=== PATIENT | female | born 2000 | race Caucasian/White ===

== ENCOUNTER 2021-09-01 19:49 | Emergency (ER) | payer BC ==
[2021-09-01 21:11] LABS: #Eosinphils 0.1 10x3/uL (0.0-0.5); #Monocytes 0.9 10x3/uL (0.0-1.1); #Neutrophils 7.8 10x3/uL (1.5-8.4); %Basophils 0.3 % (0.0-2.0); %Eosinophils 0.8 % (0.0-6.0); %Lymphocytes 24.4 % (18.0-47.0); %Neutrophils 66.2 % (40.0-75.0); Hemoglobin 14.4 g/dL (12.0-15.5); Mean Corpuscular HGB CONC 33.1 g/dL (32.0-36.0); Mean Corpuscular Hemoglobin 28.9 pg (27.0-33.0); Mean Corpuscular Volume 87.2 fl (81.6-98.3); Mean Platelet Volume 9.5 fl (7.4-10.4); Platelet Count 376 10x3/uL (150-450); RBC Distribution Width 13.3 % (11.5-14.5); Red Blood Cell (RBC) Count 4.99 10x6/uL (3.90-5.03); White Blood Cell (WBC) Count 11.8 10x3/uL (3.5-10.5)
[2021-09-01 21:28] LABS: ALT (SGPT) 26 U/L (8-55); AST (SGOT) 20 U/L (5-34); Albumin 4.2 g/dL (3.5-5.0); Alkaline Phosphatase 87 U/L (40-100); Anion Gap 12 mmol/L (10-20); BUN (Urea Nitrogen) 11 mg/dL (7.0-18.7); Bilirubin, Total 0.3 mg/dL (0.2-1.2); Calc. Creatinine Clearance 0 mL/min (70-130); Calcium 9.6 mg/dL (7.8-10.44); Carbon Dioxide 27 mmol/L (22-29); Chloride 106 mmol/L (98-107); Globulin 2.8 g/dL (2.4-3.5); Glucose 90 mg/dL (70-105); Potassium 4.5 mmol/L (3.5-5.1); Sodium 140 mmol/L (136-145)
== END 2021-09-01 21:50 | disposition home or self-care (01) ==
LOC: CSHERS 19:49
DX: O20.0 Threatened abortion (principal); Z3A.01 Less than 8 weeks gestation of pregnancy
CPT/HCPCS: 36415; 76856; 80053; 84702; 85025; 86900; 86901

== ENCOUNTER 2021-09-07 13:02 | Emergency (ER) | payer BC ==
[2021-09-07 13:54] LABS: BHCG - Serum Negative (NEGATIVE); Pregs Control Background? CLEAR/WHITE (CLR/WHITE); Pregs Control Bar Appear? YES (CONTROL BAR)
== END 2021-09-07 15:36 | disposition home or self-care (01) ==
LOC: CSHERS 13:02
DX: O03.9 Complete or unspecified spontaneous abortion without complication (principal); Z79.899 Other long term (current) drug therapy
CPT/HCPCS: 84702; 84703; 99284

== ENCOUNTER 2021-11-26 15:27 | Outpatient (CLI) | payer BC | END 2021-11-26 15:28 | disposition home or self-care (01) | LOC: CSHLAB 15:27 | PROVIDERS: ATTEND Student in an Organized Health Care Education/Training Program | DX: Z01.812 Encounter for preprocedural laboratory examination (principal); Z20.822 Contact with and (suspected) exposure to COVID-19; O02.1 Missed abortion | CPT/HCPCS: 85027; 86850; 86900; 86901; U0003; U0005 ==

== ENCOUNTER 2022-08-19 12:11 | Emergency (ER) | payer OTHER ==
[2022-08-19 13:01] LABS: Bilirubin Neg (Negative); Blood, Urine 50 (Negative); Clarity Cloudy (Clear); Glucose, Urine (Dipstick) Normal (Negative); Ketone, Urine Negative (Negative); Leukocyte 500 (Negative); Nitrite Negative (Negative); Protein, Urine (Dipstick) 100 mg/dl (Neg-Trace)
[2022-08-19 13:10] LABS: Bacteria/HPF 2+ HPF (None Seen); Squamous Epithelial 21-50 HPF (0-3)
[2022-08-19 13:11] LABS: Mucous/LPF 1+ LPF (<2+)
[2022-08-19 13:35] LABS: SARS-CoV-2 NAA Rapid Test Not Detected (NotDetected)
[2022-08-19] MEDS ORDERED: Cephalexin 250 MG CAP ONE (13:58)
[2022-08-19] MEDS ORDERED: Ondansetron ODT 4 MG TAB ONE (13:59)
== END 2022-08-19 14:50 | disposition home or self-care (01) ==
LOC: CSHERS 12:11 → EDSTATUS 12:13 → CSHERS 14:50
DX: O23.13 Infections of bladder in pregnancy, third trimester (principal); N30.01 Acute cystitis with hematuria; Z3A.31 31 weeks gestation of pregnancy; Z20.822 Contact with and (suspected) exposure to COVID-19
CPT/HCPCS: 81003; 81015; 99284; Q0162

== ENCOUNTER 2022-09-20 02:44 | Day surgery (SDC) | payer OTHER ==
[2022-09-20] MEDS ORDERED: hydrALAZINE 20 MG/ML VIAL SLOW IVP PRN (03:02)
[2022-09-20 03:05] VITALS: BMI 31.6
[2022-09-20 04:02] LABS: Bilirubin Neg (Negative); Blood, Urine Negative (Negative); CAUTI Indications for Culture Pregnancy; Clarity Clear (Clear); Glucose, Urine (Dipstick) Normal (Negative); Ketone, Urine Negative (Negative); Leukocyte 25 (Negative); Nitrite Negative (Negative); Protein, Urine (Dipstick) 30 mg/dl (Neg-Trace); Urobilinogen Normal mg/dL (Less than 2)
[2022-09-20 04:04] LABS: Urine Culture Reflex Yes Yes
[2022-09-20 04:14] LABS: Bacteria/HPF Rare-Few HPF (None Seen); RBC/HPF 0-3 HPF (0-3); Squamous Epithelial 0-3 HPF (0-3)
== END 2022-09-20 07:55 | disposition home or self-care (01) ==
LOC: CSHLD/OP 02:44
PROVIDERS: ATTEND Obstetrics & Gynecology
DX: O47.03 False labor before 37 completed weeks of gestation, third trimester (principal); Z3A.36 36 weeks gestation of pregnancy
CPT/HCPCS: 81001; 87086; 99283

== ENCOUNTER 2022-09-22 09:21 | Emergency (ER) | payer OTHER | END 2022-09-22 10:06 | disposition left against medical advice (07) | LOC: CSHERS 09:21 | DX: Z53.21 Procedure and treatment not carried out due to patient leaving prior to being seen by health care provider (principal) ==

== ENCOUNTER 2022-09-25 07:24 | Day surgery (SDC) | payer OTHER ==
[2022-09-25] MEDS ORDERED: hydrALAZINE 20 MG/ML VIAL SLOW IVP PRN (09:02)
== END 2022-09-25 09:18 | disposition home or self-care (01) ==
LOC: CSHLD/OP 07:24
PROVIDERS: ATTEND Obstetrics & Gynecology
DX: O47.1 False labor at or after 37 completed weeks of gestation (principal); O26.873 Cervical shortening, third trimester; Z86.59 Personal history of other mental and behavioral disorders; Z79.899 Other long term (current) drug therapy; Z3A.37 37 weeks gestation of pregnancy

== ENCOUNTER 2022-10-07 16:21 | Inpatient (IN) | payer OTHER ==
[2022-10-07] MEDS ORDERED: Lidocaine 1% (PF) 30 ML VIAL SC PRN (17:19)
[2022-10-07] MEDS ORDERED: Diphenoxylate HCl/Atropine Tablet PO PRN ×2 (17:19)
[2022-10-07] MEDS ORDERED: Promethazine HCl 25 MG/ML VIAL IM PRN (17:19)
[2022-10-07] MEDS ORDERED: hydrALAZINE 20 MG/ML VIAL SLOW IVP PRN (17:19)
[2022-10-07] MEDS ORDERED: Acetaminophen 500 MG TAB PO PRN (17:19)
[2022-10-07] MEDS ORDERED: Ondansetron PF 4 MG/2 ML Vial IVP PRN (17:19)
[2022-10-07] MEDS ORDERED: HYDROcodone/Acetaminophen 5/325 mg Tablet PO PRN ×2 (17:19)
[2022-10-07] MEDS ORDERED: Misoprostol 200 MCG TAB PR PRN (17:19)
[2022-10-07] MEDS ORDERED: Ibuprofen 800 MG TAB PO PRN (17:19)
[2022-10-07] MEDS ORDERED: Butorphanol Tartrate 1 MG/ML VIAL SLOW IVP PRN (17:19)
[2022-10-07] MEDS ORDERED: Carboprost 250 MCG/ML AMP IM PRN (17:19)
[2022-10-07] MEDS ORDERED: NS w/ Oxytocin 30 units 500 ML IV SCH ×2 (17:30)
[2022-10-07 17:55] VITALS: BMI 30.7
[2022-10-07 18:35] LABS: Hemoglobin 11.5 g/dL (12.0-15.5); Mean Corpuscular HGB CONC 34.4 g/dL (32.0-36.0); Mean Corpuscular Hemoglobin 28.7 pg (27.0-33.0); Mean Corpuscular Volume 83.3 fl (81.6-98.3); Mean Platelet Volume 10.1 fl (7.4-10.4); Platelet Count 330 10x3/uL (150-450); Red Blood Cell (RBC) Count 4.01 10x6/uL (3.90-5.03); White Blood Cell (WBC) Count 13.3 10x3/uL (3.5-10.5)
[2022-10-07 18:48] LABS: ALT (SGPT) 10 U/L (8-55); AST (SGOT) 16 U/L (5-34); Albumin 3.4 g/dL (3.5-5.0); Alkaline Phosphatase 191 U/L (40-110); Anion Gap 14 mmol/L (10-20); BUN (Urea Nitrogen) 4 mg/dL (7.0-18.7); Bilirubin, Total 0.8 mg/dL (0.2-1.2); Calc. Creatinine Clearance 187 mL/min (70-130); Calcium 9.2 mg/dL (7.8-10.44); Carbon Dioxide 22 mmol/L (22-29); Chloride 105 mmol/L (98-107); Estimated GFR 130; Globulin 2.5 g/dL (2.4-3.5); Glucose 81 mg/dL (70-105); Potassium 3.4 mmol/L (3.5-5.1); Protein, Total 5.9 g/dL (6.0-8.3); Sodium 138 mmol/L (136-145)
[2022-10-07 19:06] LABS: HBSAg Index 0.14 S/CO (0-0.99); Hep B Surf Ag Non-Reactive S/CO (NonReactive)
[2022-10-07 19:07] LABS: Syphilis Antibody Nonreactive (Nonreactive); Syphilis Antibody Index 0.03 S/CO (<1.00 Non-Reactive)
[2022-10-07] MEDS: Lactated Ringer's 1,000 ML IV SCH (20:06)
[2022-10-07] MEDS ORDERED: Fentanyl 2 mcg/Bup 0.1% Cadd 100 ML ONE (23:58)
[2022-10-08] MEDS ORDERED: Fentanyl 2 mcg/Bup 0.1% Cadd 100 ML ONE (09:00)
[2022-10-08] MEDS ORDERED: Naloxone HCl 0.4 mg/ml Vial IVP PRN ×2 (13:22)
[2022-10-08] MEDS ORDERED: Ondansetron PF 4 MG/2 ML Vial IVP PRN ×2 (13:22→15:50)
[2022-10-08] MEDS ORDERED: Acetaminophen 325 MG TAB PO PRN (13:22)
[2022-10-08] MEDS ORDERED: Moisturizing Cream (Eucerin) 113 GM JAR TOP PRN (13:22)
[2022-10-08] MEDS ORDERED: diphenhydrAMINE 50 MG/ML VIAL IVP PRN (13:22)
[2022-10-08] MEDS ORDERED: Misoprostol 200 MCG TAB ONE (13:22)
[2022-10-08] MEDS ORDERED: ePHEDrine Sulfate 50 MG/10 ML VIAL SLOW IVP PRN (13:22)
[2022-10-08] MEDS ORDERED: Promethazine HCl 25 MG/ML VIAL IM PRN (13:22)
[2022-10-08] MEDS ORDERED: Lactated Ringer's 500 ML IV PRN (13:22)
[2022-10-08] MEDS ORDERED: Fentanyl 2 mcg/Bupivacaine 0.1% Cassette 100 ML EPIDURAL SCH (13:30)
[2022-10-08] MEDS ORDERED: Communication Order-Pharmacy FS SCH (13:30)
[2022-10-08] MEDS ORDERED: Lanolin Ointment 7 GM TUBE TOP PRN (15:50)
[2022-10-08] MEDS ORDERED: Milk Of Magnesia 30 ML UDCUP PO PRN (15:50)
[2022-10-08] MEDS ORDERED: Boostrix 0.5 ML (Tdap) VIAL (>/=7 yrs of age) IM ONE (15:50)
[2022-10-08] MEDS ORDERED: hydrALAZINE 20 MG/ML VIAL SLOW IVP PRN (15:50)
[2022-10-08] MEDS ORDERED: HYDROcodone/Acetaminophen 5/325 mg Tablet PO PRN ×2 (15:50)
[2022-10-08] MEDS ORDERED: Benzocaine-Menthol 82.5 ML CAN TOP PRN (15:50)
[2022-10-08] MEDS ORDERED: Preparation H Ointment 28 GM TUBE PR PRN (15:50)
[2022-10-08] MEDS ORDERED: NS w/ Oxytocin 30 units 500 ML IV SCH (15:50)
[2022-10-08] MEDS ORDERED: diphenhydrAMINE 25 MG CAP PO PRN (15:50)
[2022-10-08] MEDS ORDERED: Bisacodyl 10 MG SUPP PR PRN (15:50)
[2022-10-08] MEDS: Ferrous Sulfate 325 MG TAB PO SCH (17:17)
[2022-10-08] MEDS: Ibuprofen 800 MG TAB PO SCH ×2 (17:17→23:57)
[2022-10-08] MEDS: Lactated Ringer's 1,000 ML IV SCH (17:26)
[2022-10-08] MEDS: hydrOXYzine 25 MG TAB PO SCH (21:38)
[2022-10-08] MEDS: lamoTRIgine 100 MG TAB PO SCH (21:39)
[2022-10-08] MEDS: Docusate 100 MG CAP PO SCH (22:39)
[2022-10-09 03:55] LABS: Hemoglobin 8.9 g/dL (12.0-15.5)
[2022-10-09] MEDS: Ferrous Sulfate 325 MG TAB PO SCH ×2 (10:27→16:17)
[2022-10-09] MEDS: Prenatal Vitamin 1 TAB PO SCH (10:27)
[2022-10-09] MEDS: Bupropion 150 MG XL TAB PO SCH (10:28)
[2022-10-09] MEDS: Ibuprofen 800 MG TAB PO SCH ×2 (10:28→16:17)
[2022-10-09] MEDS: Docusate 100 MG CAP PO SCH ×2 (10:29→21:15)
[2022-10-09] MEDS: lamoTRIgine 100 MG TAB PO SCH ×2 (10:33→21:15)
[2022-10-09] MEDS: hydrOXYzine 25 MG TAB PO SCH (21:15)
[2022-10-10] MEDS: Ibuprofen 800 MG TAB PO SCH ×2 (00:20→07:41)
[2022-10-10] MEDS: Prenatal Vitamin 1 TAB PO SCH (07:50)
[2022-10-10] MEDS: Ferrous Sulfate 325 MG TAB PO SCH (07:50)
[2022-10-10] MEDS: Docusate 100 MG CAP PO SCH (07:50)
[2022-10-10] MEDS: lamoTRIgine 100 MG TAB PO SCH (07:51)
[2022-10-10] MEDS: Bupropion 150 MG XL TAB PO SCH (07:51)
[2022-10-10] MEDS ORDERED: Bupivacaine PF 0.5% 30 ML VIAL ONE (08:00)
[2022-10-10] MEDS ORDERED: ePHEDrine Sulfate 50 MG/10 ML VIAL ONE (08:00)
[2022-10-10] MEDS ORDERED: Bupivacaine HCl 0.5%/Epinephrine 1:200,000/PF 30 ml Vial ONE (08:00)
[2022-10-10 08:09] VITALS: BP 126/74; TEMP 97.4
== END 2022-10-10 14:00 | disposition home or self-care (01) | DRG 807 ==
LOC: CSHLD/OP 16:21 → CSHLD 18:25 → CSHPP 10-08 15:49
PROVIDERS: ADMIT Obstetrics & Gynecology; ATTEND Obstetrics & Gynecology
PROC: 10E0XZZ Delivery of Products of Conception, External Approach (ICD-10-PCS; principal; 2022-10-08)
PROC: 10907ZC Drainage of Amniotic Fluid, Therapeutic from Products of Conception, Via Natural or Artificial Opening (ICD-10-PCS; 2022-10-08)
PROC: 0UQMXZZ Repair Vulva, External Approach (ICD-10-PCS; 2022-10-08)
DX: O99.344 Other mental disorders complicating childbirth (principal); Z37.0 Single live birth; Z3A.38 38 weeks gestation of pregnancy; F31.9 Bipolar disorder, unspecified; Z79.899 Other long term (current) drug therapy; O62.2 Other uterine inertia; O70.0 First degree perineal laceration during delivery; O90.81 Anemia of the puerperium; D64.9 Anemia, unspecified; O13.5 Gestational [pregnancy-induced] hypertension without significant proteinuria, complicating the puerperium
CPT/HCPCS: 51702; 80053; 82570; 84156; 85014; 85018; 85027; 86780; 86850; 86900; 86901; 87340; 99285; J0360; J2405; J2550

== ENCOUNTER 2023-08-10 08:35 | Emergency (ER) | payer OTHER ==
[2023-08-10] MEDS ORDERED: Acetaminophen 500 MG TAB ONE (09:25)
[2023-08-10] MEDS ORDERED: Ketorolac Tromethamine 30 MG/ML VIAL ONE (09:25)
[2023-08-10] MEDS ORDERED: Ondansetron PF 4 MG/2 ML Vial ONE (09:25)
[2023-08-10 09:46] LABS: #Eosinphils 0.1 10x3/uL (0.0-0.5); #Monocytes 0.7 10x3/uL (0.0-1.1); #Neutrophils 5.6 10x3/uL (1.5-8.4); %Basophils 0.5 % (0.0-2.0); %Eosinophils 1.6 % (0.0-6.0); %Lymphocytes 20.5 % (18.0-47.0); %Monocytes 8.6 % (0.0-10.0); %Neutrophils 68.6 % (40.0-75.0); Hematocrit 40.4 % (34.9-44.5); Hemoglobin 13.5 g/dL (12.0-15.5); Mean Corpuscular HGB CONC 33.4 g/dL (32.0-36.0); Mean Corpuscular Hemoglobin 27.8 pg (27.0-33.0); Mean Corpuscular Volume 83.1 fl (81.6-98.3); Mean Platelet Volume 9.9 fl (7.4-10.4); Platelet Count 325 10x3/uL (150-450); RBC Distribution Width 13.6 % (11.5-14.5); Red Blood Cell (RBC) Count 4.86 10x6/uL (3.90-5.03); White Blood Cell (WBC) Count 8.1 10x3/uL (3.5-10.5)
[2023-08-10 10:07] LABS: ALT (SGPT) 16 U/L (8-55); AST (SGOT) 17 U/L (5-34); Albumin 4.1 g/dL (3.5-5.0); Alkaline Phosphatase 63 U/L (40-110); Anion Gap 13 mmol/L (10-20); BUN (Urea Nitrogen) 11 mg/dL (7.0-18.7); Bilirubin, Total 1.3 mg/dL (0.2-1.2); Calc. Creatinine Clearance 0 mL/min (70-130); Calcium 9.1 mg/dL (7.8-10.44); Carbon Dioxide 23 mmol/L (22-29); Chloride 105 mmol/L (98-107); Estimated GFR 97; Globulin 2.6 g/dL (2.4-3.5); Glucose 111 mg/dL (70-105); Protein, Total 6.7 g/dL (6.0-8.3); Sodium 137 mmol/L (136-145)
[2023-08-10 10:14] LABS: Troponin I Less than 0.010 ng/mL (< 0.028)
[2023-08-10] MEDS ORDERED: Iopamidol 370 76% 100 ML VIAL ONE (10:23)
[2023-08-10 10:24] LABS: SARS-CoV-2 NAA Rapid Test DETECTED (NotDetected)
== END 2023-08-10 13:02 | disposition home or self-care (01) ==
LOC: CSHERS 08:35
DX: U07.1 COVID-19 (principal); J11.1 Influenza due to unidentified influenza virus with other respiratory manifestations; I10 Essential (primary) hypertension
CPT/HCPCS: 36415; 71045; 71275; 80053; 84484; 85025; 85379; 93005; 96374; 96375; J1885; J2405; Q9967

== ENCOUNTER 2025-06-20 11:00 | Outpatient (CLI) | payer BC | END 2025-06-20 11:01 | disposition home or self-care (01) | LOC: CSHLAB 11:00 | PROVIDERS: ATTEND Obstetrics & Gynecology | DX: Z01.812 Encounter for preprocedural laboratory examination (principal); O09.299 Supervision of pregnancy with other poor reproductive or obstetric history, unspecified trimester | CPT/HCPCS: 85027; 86850; 86900; 86901 ==

== ENCOUNTER 2025-06-23 05:57 | Day surgery (SDC) | payer BC ==
[2025-06-20 11:29] VITALS: BMI 34.9
[2025-06-20 13:09] LABS: Hematocrit 38.3 % (34.9-44.5); Hemoglobin 13.3 g/dL (12.0-15.5); Mean Corpuscular Hemoglobin 29.5 pg (27.0-33.0); Mean Corpuscular Volume 84.9 fL (81.6-98.3); Platelet Count 266 10x3/uL (150-450); Red Blood Cell (RBC) Count 4.51 10x6/uL (3.90-5.03); White Blood Cell (WBC) Count 10.11 10x3/uL (3.5-10.5)
[2025-06-23] MEDS ORDERED: Methylergonovine 0.2 MG/ML VIAL ONE (06:45)
[2025-06-23] MEDS ORDERED: PROPOFOL 40 ML ONE (07:11)
[2025-06-23] MEDS ORDERED: CEFAZOLIN 2 GM VIAL ONE (07:18)
[2025-06-23] MEDS ORDERED: HYDROcodone/Acetaminophen 5/325 mg Tablet ONE (09:38)
== END 2025-06-23 09:55 | disposition home or self-care (01) ==
LOC: CSHSDC 05:57
PROVIDERS: ATTEND Obstetrics & Gynecology
PROC: 0UVC0ZZ Restriction of Cervix, Open Approach (ICD-10-PCS; principal; 2025-06-23)
DX: O09.291 Supervision of pregnancy with other poor reproductive or obstetric history, first trimester (principal); Z3A.13 13 weeks gestation of pregnancy
CPT/HCPCS: 85027; 86850; 86900; 86901; J2210; J2704